=== PATIENT | male | born 1955 | race Caucasian/White ===

== ENCOUNTER 2023-08-09 09:22 | Outpatient (CLI) | payer OTHER, SELFPAY ==
--- NOTE | 2023-08-09 09:52 | MM_ITS ---
WS: [id number] DIAGNOSTIC BILATERAL DIGITAL BREAST TOMOSYNTHESIS MAMMOGRAPHY WITH CAD LEFT breast ultrasound, limited. HISTORY: LT BR PAIN AND NODULES, male patient. COMPARISON: None available. TECHNIQUE: Bilateral craniocaudad, mediolateral oblique, and mediolateral views are submitted with to mosbrody and ALEJO. Spot compression LEFT CC. Computer aided detection utilized. Breast composition: There are scattered areas of fibroglandular density. Irregular mass posterior to the LEFT nipple measures 2.5 x 3.4 cm. Typical appearance for. Minimal but similar changes in the RIG HT subareolar region. There is no discrete mass or distortion. No nipple retraction. LEFT breast ultrasound, limited. Changes of gynecomastia noted in the subareolar region LEFT breast near 3:00. Area measures 2.3 x 1.1 cm. No abnormality subareolar region RIGHT breast. IMPRESSION: MM/[place] [address] BI-RADS: 2-Benign FOLLOW UP: See Report LEFT breast gynecomastia.
== END 2023-08-09 09:23 | disposition home or self-care (01) ==
LOC: RAD 09:24
PROVIDERS: Family Provider Nurse Practitioner Family; Visit Provider Internal Medicine
DX: N64.4 Mastodynia (principal); N63.25 Unspecified lump in the left breast, overlapping quadrants
CPT/HCPCS: 76642; 77062; G0279